=== PATIENT | female | born 1935 | race Caucasian/White ===

== ENCOUNTER 2018-09-02 08:03 | Inpatient (IN) | payer OTHER ==
[2018-09-01 09:56] LABS: BASOPHILS % (AUTO) 0.2 % (0-1); EOSINOPHILS # (AUTO) 0.1 X10'3 (0-0.9); EOSINOPHILS % (AUTO) 1.7 % (0-6); LYMPHOCYTES # (AUTO) 0.9 X10'3 (1.1-4.8); LYMPHOCYTES % (AUTO) 12.8 % (21-51); MEAN CORPUSCULAR HEMOGLOBIN 31.4 PG (27.0-31.0); MEAN CORPUSCULAR HGB CONC 33.4 % (33.0-36.5); MEAN CORPUSCULAR VOLUME 94.2 FL (78-98); MEAN PLATELET VOLUME 9.1 FL (7.4-10.4); MONOCYTES # (AUTO) 0.4 X10'3 (0-0.9); MONOCYTES % (AUTO) 5.5 % (2-12); NEUTROPHILS # (AUTO) 5.7 X10'3 (1.8-7.7); NEUTROPHILS % (AUTO) 79.8 % (42-75); PRE OP HEMATOCRIT 36.3 % (35.0-45.0); PRE OP HEMOGLOBIN 12.1 g/dL (12.0-16.0); PRE OP PLATELET COUNT 179 X10'3 (140-440); RED BLOOD COUNT 3.86 X10'6 (4.20-5.60); RED CELL DISTRIBUTION WIDTH 12.2 % (11.5-14.5)
[2018-09-01 10:04] LABS: CLARITY,URINE CLEAR (Clear); COLOR,URINE YELLOW (Yellow); GLUCOSE, URINE NEGATIVE (Neg); KETONES,URINE NEGATIVE (Neg); LEUKOCYTE ESTERASE ,URINE TRACE (Neg); NITRITES, URINE NEGATIVE (Neg); OCCULT BLOOD,URINE TRACE-INTACT (Neg); PH,URINE 5.5 (4.8-8.0); PROTEIN,URINE NEGATIVE (Neg); UROBILINOGEN,URINE 0.2 E.U/dL (0.2-1.0)
[2018-09-01 10:08] LABS: UA COLLECTION TYPE CLN CATCH MIDSTREAM
[2018-09-01 10:11] LABS: MUCUS STRANDS MANY /LPF (Neg); SQUAMOUS EPITHELIAL CELL,UR FEW /LPF (FEW); TRANSITIONAL EPI CELLS,URINE FEW /HPF
[2018-09-01 10:12] LABS: HYALINE CASTS >30 /LPF (NEGATIVE)
[2018-09-01 10:13] LABS: RBC,URINE 0-2 /HPF (0-2); WBC,URINE 0-4 /HPF (0-4)
[2018-09-01 10:14] LABS: BACTERIA,URINE NONE SEEN /HPF (Neg)
[2018-09-01 10:26] LABS: ALBUMIN 3.9 G/DL (3.4-5.0); ALBUMIN/GLOBULIN RATIO 1.3 (1.1-1.5); ALKALINE PHOSPHATASE 58 IU/L (46-116); BLOOD UREA NITROGEN 23 MG/DL (7-18); BUN/CREATININE RATIO 25.6 (6.6-38.0); CALCIUM 8.9 MG/DL (8.5-10.1); CHLORIDE 100 MMOL/L (99-107); PRE OP ALT 25 U/L (30-65); PRE OP ANION GAP 8 (8-16); PRE OP AST 20 U/L (10-37); PRE OP BILIRUB, TOTAL 0.6 MG/DL (0.0-1.0); PRE OP GLUCOSE 113 MG/DL (70-104); PRE OP POTASSIUM 3.8 MMOL/L (3.4-5.1); PRE OP SODIUM 136 MMOL/L (135-145); TOTAL CARBON DIOXIDE 27.7 MMOL/L (24-32); eGFR 60 ML/MIN
[2018-09-02] VITALS (18 sets, daily range): BP systolic 122–166; BP diastolic 52–82
[~2018-09-02] VITALS: Ht 152.4 cm; Wt 52.4 kg
[~2018-09-02 08:03] MED LIST: ATOR10TA70 PO; HYDROmorphone 1 mg/ml syringe IV PRN; LEVO75TA PO; METO-395 PO; VANCOMYCIN INJ 1000 MG in NORMAL SALINE 250ml IV.SOLN IV ONE; acetaminophen 325mg tablet PO ONE; acetaminophen 325mg tablet PO PRN; bisacodyl 10mg suppository rectal RC PRN; ceFAZolin 1GM/D5W- ADD-VANTAGE 50 ML IV SCH; cefazolin/dext.iso 2gm/100 ML IV ONE; celeCOXIB 100mg capsule PO ONE; diphenhydrAMINE 25mg capsule PO PRN; famotidine 20mg tablet PO ONE; gabapentin 300mg capsule PO ONE; magnesium hydroxide 30ml (MOM) UD suspension PO PRN; metoclopramide 5 mg/ml inj IV ONE; ondansetron/PF 4mg/2ml inj IV PRN; oxyCODONE SR 10mg (sust. release) tab -2 tabs (20mg) PO ONE; ringers solution, lacted 1,000 ML IV SCH; tranexamic acid inj. 1,000 MG in normal saline 100ml IV soln 90 ML IV ONE
[2018-09-02] MEDS ORDERED: tetracaine 1% (10mg/ml) pres. free inj. ONE (09:44)
[2018-09-02] MEDS ORDERED: propofol inj 20 ML IV ONE ×2 (09:49)
[2018-09-02] MEDS ORDERED: vancomycin 1,000mg inj ONE (09:54)
[2018-09-02] MEDS ORDERED: MIDAZolam 1mg/ml 10ml vial ONE (11:02)
[2018-09-02] MEDS ORDERED: fentaNYL/PF 50MCG/1 ML 2ML syringe IV PRN ×2 (11:40)
[2018-09-02] MEDS ORDERED: hydrALAZINE 20mg/ml inj. IV PRN (11:40)
[2018-09-02] MEDS ORDERED: enalaprilat dihydrate 2.5mg/2ml vial IV PRN (11:40)
[2018-09-02] MEDS ORDERED: ondansetron/PF 4mg/2ml inj IV PRN ×2 (11:40)
[2018-09-02] MEDS ORDERED: ringers solution, lacted 1,000 ML IV SCH (11:40)
[2018-09-02] MEDS ORDERED: diphenhydrAMINE 50 mg/ml inj IV PRN (11:40)
[2018-09-02] MEDS ORDERED: morphine 4 MG/ML inj SYRINge IV PRN ×2 (11:40)
[2018-09-02] MEDS ORDERED: ROPIVAcaine inj 250 MG, CloNIDine/PF inj 80 MCG, epiNEPHrine inj 0.5 MG in normal salin... IU STA (11:46)
[2018-09-02] MEDS: potassium cl 20mEq in 1/2 NS 1,000 ML IV SCH ×2 (15:46→16:55)
[2018-09-02] MEDS ORDERED: vancomycin/NS 1 GM ADD-VANTAGE 250 ML IV SCH (20:00)
[2018-09-02] MEDS: gabapentin 300mg capsule PO SCH (20:33)
[2018-09-02] MEDS: ceFAZolin 1GM/D5W- ADD-VANTAGE 50 ML IV SCH (20:34)
[2018-09-02] MEDS: sennosides 8.6mg tablet PO SCH (20:34)
[2018-09-02] MEDS: ascorbic acid 500mg tablet PO SCH (20:34)
[2018-09-02] MEDS: HYDROcodone/acetaminophen 10/325mg tab PO PRN (20:41)
[2018-09-03] MEDS: potassium cl 20mEq in 1/2 NS 1,000 ML IV SCH ×4 (01:21→23:15)
[2018-09-03 02:00] VITALS: BP 119/49
[2018-09-03] MEDS: ceFAZolin 1GM/D5W- ADD-VANTAGE 50 ML IV SCH (03:09)
[2018-09-03] MEDS: HYDROcodone/acetaminophen 10/325mg tab PO PRN ×3 (05:11→21:11)
[2018-09-03 05:37] LABS: BASOPHILS % (AUTO) 0.2 % (0-1); EOSINOPHILS # (AUTO) 0.1 X10'3 (0-0.9); EOSINOPHILS % (AUTO) 1.9 % (0-6); HEMATOCRIT 28.6 % (35.0-45.0); HEMOGLOBIN 9.6 g/dl (12.0-16.0); LYMPHOCYTES # (AUTO) 0.6 X10'3 (1.1-4.8); LYMPHOCYTES % (AUTO) 9.4 % (21-51); MEAN CORPUSCULAR HEMOGLOBIN 31.7 PG (27.0-31.0); MEAN CORPUSCULAR HGB CONC 33.6 % (33.0-36.5); MEAN CORPUSCULAR VOLUME 94.2 FL (78-98); MEAN PLATELET VOLUME 9.3 FL (7.4-10.4); MONOCYTES # (AUTO) 0.2 X10'3 (0-0.9); MONOCYTES % (AUTO) 3.9 % (2-12); NEUTROPHILS # (AUTO) 5.1 X10'3 (1.8-7.7); NEUTROPHILS % (AUTO) 84.6 % (42-75); PLATELET COUNT 116 X10'3 (140-440); RED BLOOD COUNT 3.04 X10'6 (4.20-5.60); RED CELL DISTRIBUTION WIDTH 12.2 % (11.5-14.5)
[2018-09-03 06:00] VITALS: BP 132/51
[2018-09-03 06:17] LABS: ANION GAP 6 (8-16); CHLORIDE 101 MMOL/L (99-107); POTASSIUM 4.1 MMOL/L (3.5-5.1); SODIUM 133 MMOL/L (135-145); TOTAL CARBON DIOXIDE 25.7 MMOL/L (24-32)
[2018-09-03] MEDS ORDERED: ASPI-1 PO (08:36)
[2018-09-03] MEDS: multivitamins, therapeutics tablet PO SCH (08:59)
[2018-09-03] MEDS: levoTHYROXINE 75mcg tablet PO SCH (08:59)
[2018-09-03] MEDS: atorvastatin 10mg tablet PO SCH (08:59)
[2018-09-03] MEDS: gabapentin 300mg capsule PO SCH ×3 (08:59→21:11)
[2018-09-03] MEDS: metoprolol succinate 25mg (24-HOUR) SR. Tablet PO SCH (09:00)
[2018-09-03] MEDS: aspirin 325mg tablet PO SCH (09:00)
[2018-09-03] MEDS: ascorbic acid 500mg tablet PO SCH ×2 (09:00→21:11)
[2018-09-03 10:00] VITALS: BP 129/60
[2018-09-03 18:00] VITALS: BP 106/57
[2018-09-03] MEDS: sennosides 8.6mg tablet PO SCH (21:11)
[2018-09-03 22:00] VITALS: BP 139/53
[2018-09-04] MEDS: HYDROcodone/acetaminophen 10/325mg tab PO PRN ×2 (04:31→13:13)
[2018-09-04 06:00] VITALS: BP 127/57
[2018-09-04 06:29] LABS: BASOPHILS % (AUTO) 0.2 % (0-1); EOSINOPHILS # (AUTO) 0.1 X10'3 (0-0.9); HEMOGLOBIN 9.8 g/dl (12.0-16.0); LYMPHOCYTES # (AUTO) 0.5 X10'3 (1.1-4.8); LYMPHOCYTES % (AUTO) 6.9 % (21-51); MEAN CORPUSCULAR HEMOGLOBIN 31.8 PG (27.0-31.0); MEAN CORPUSCULAR HGB CONC 33.9 % (33.0-36.5); MEAN CORPUSCULAR VOLUME 93.7 FL (78-98); MEAN PLATELET VOLUME 9.3 FL (7.4-10.4); MONOCYTES # (AUTO) 0.3 X10'3 (0-0.9); MONOCYTES % (AUTO) 4.5 % (2-12); NEUTROPHILS # (AUTO) 5.9 X10'3 (1.8-7.7); NEUTROPHILS % (AUTO) 86.4 % (42-75); PLATELET COUNT 115 X10'3 (140-440); RED CELL DISTRIBUTION WIDTH 11.9 % (11.5-14.5); WHITE BLOOD COUNT 6.8 X10'3 (4.5-11.0)
[2018-09-04] MEDS: atorvastatin 10mg tablet PO SCH (07:49)
[2018-09-04] MEDS: gabapentin 300mg capsule PO SCH (07:49)
[2018-09-04] MEDS: levoTHYROXINE 75mcg tablet PO SCH (07:49)
[2018-09-04] MEDS: ascorbic acid 500mg tablet PO SCH (07:49)
[2018-09-04] MEDS: multivitamins, therapeutics tablet PO SCH (07:49)
[2018-09-04] MEDS: aspirin 325mg tablet PO SCH (07:49)
[2018-09-04] MEDS: metoprolol succinate 25mg (24-HOUR) SR. Tablet PO SCH (07:49)
[2018-09-04 10:00] VITALS: BP 144/47
== END 2018-09-04 13:20 | disposition home or self-care (01) | DRG 470 ==
LOC: PAS IN 08:03 → EDSTATUS 11:00 → ORTHO 4S 13:45
PROVIDERS: ADMIT Orthopaedic Surgery; ATTEND Orthopaedic Surgery
PROC: 0SR9069 Replacement of Right Hip Joint with Oxidized Zirconium on Polyethylene Synthetic Substitute, Cemented, Open Approach (ICD-10-PCS; principal; 2018-09-02 10:44)
DX: M16.11 Unilateral primary osteoarthritis, right hip (principal); D62 Acute posthemorrhagic anemia; E03.9 Hypothyroidism, unspecified; E78.5 Hyperlipidemia, unspecified; I10 Essential (primary) hypertension; R32 Unspecified urinary incontinence; Z72.89 Other problems related to lifestyle; Z90.710 Acquired absence of both cervix and uterus; Z98.41 Cataract extraction status, right eye; Z79.82 Long term (current) use of aspirin; Z79.899 Other long term (current) drug therapy; Z82.49 Family history of ischemic heart disease and other diseases of the circulatory system; Z80.9 Family history of malignant neoplasm, unspecified
CPT/HCPCS: 36415; 71046; 72170; 80051; 80053; 81001; 84443; 85025; 86885; 86900; 86901; 87070; 87088; 97110; 97116; 97161; 97530; A4615; A7000; C1713; C1758; C1776; G0378; J0171; J0690; J0735; J2250; J2704; J2765; J2795; J3370; J7030; J7120